=== PATIENT | male | born 1965 | race Caucasian/White ===

== ENCOUNTER 2019-11-07 04:54 | Inpatient (IN) | payer OTHER ==
[2019-11-07] MEDS ORDERED: NITROGLYCERIN OINT 1 INCH/GM PACKET TOPICAL STA (05:24)
--- NOTE | 2019-11-07 05:28 | ED ---
SOB HPI - General Chief Complaint: Shortness of Breath Stated Complaint: SOB Time Seen by Provider: 11/07/19 05:09 Source: patient Mode of arrival: ambulatory Limitations: no limitations - History of Present Illness Initial Comments: This patient is a 54-year-old man who presents with the complaint of dyspnea going on for approximately 3 months. The patient's does not have a primary physician. He states that he was previously told that he has hypertension but had not been able to afford his medications has not been on these for up to 2 years. Patient in describing the shortness of breath it sounds like it is mainly exertional. He has not had chest pain, cough or sputum, fever or chills. He has not noted leg pain or swelling. No change in bowel movements or urination. MD Complaint: shortness of breath Onset/Timin -: month(s) Severity scale (1-10): 0 Consistency: constant Improves With: nothing Worsens With: exertion Associated Symptoms: denies other symptoms Treatments Prior to Arrival: none - Related Data Home Oxygen Therapy: No Allergies Allergy/AdvReac Type Severity Reaction Status Date / Time No Known Allergies Allergy Verified 11/07/19 05:00 Review of Systems ROS Statement: Those systems with pertinent positive or pertinent negative responses have been documented in the HPI. ROS Other: All systems not noted in ROS Statement are negative. Constitutional: Denies: fever, chills Respiratory: Reports: dyspnea. Denies: cough, wheezes, hemoptysis Cardiovascular: Reports: dyspnea on exertion. Denies: chest pain, palpitations, orthopnea, edema, syncope Gastrointestinal: Denies: abdominal pain, nausea, vomiting, diarrhea, melena, hematochezia Genitourinary: Denies: dysuria, hematuria Musculoskeletal: Denies: back pain Skin: Denies: rash Neurological: Denies: headache Past Medical History Past Medical History: No Reported History History of Any Multi-Drug Resistant Organisms: None Reported Past Surgical History: No Surgical Hx Reported Past Psychological History: No Psychological Hx Reported Smoking Status: Former smoker Past Alcohol Use History: Daily Past Drug Use History: None Reported General Exam Limitations: no limitations General appearance: alert, in no apparent distress Head exam: Present: atraumatic, normocephalic Eye exam: Present: normal appearance. Absent: scleral icterus, conjunctival injection ENT exam: Present: normal oropharynx Neck exam: Present: normal inspection Respiratory exam: Present: normal lung sounds bilaterally. Absent: respiratory distress, wheezes, rales, rhonchi, stridor, accessory muscle use, decreased breath sounds, prolonged expiratory Cardiovascular Exam: Present: regular rate, normal rhythm, normal heart sounds. Absent: systolic murmur, diastolic murmur, rubs, gallop GI/Abdominal exam: Present: soft. Absent: distended, tenderness, guarding, rebound, rigid, mass Extremities exam: Present: normal inspection, normal capillary refill. Absent: pedal edema, calf tenderness Back exam: Present: normal inspection. Absent: CVA tenderness (R), CVA tenderness (L) Neurological exam: Present: alert Skin exam: Present: warm, dry, intact, normal color. Absent: rash Course Vital Signs 11/07/19 11/07/19 11/07/19 04:57 05:30 06:00 Temperature 98.4 F Pulse Rate 88 79 78 Respiratory 20 21 20 Rate Blood Pressure 192/113 174/103 156/100 O2 Sat by Pulse 98 98 97 Oximetry 11/07/19 11/07/19 06:10 06:20 Temperature Pulse Rate 77 77 Respiratory 20 19 Rate Blood Pressure 157/96 154/87 O2 Sat by Pulse 97 96 Oximetry Medical Decision Making - Lab Data Result diagrams: 11/07/19 05:46 11/07/19 05:46 Lab Results 11/07/19 11/07/19 11/07/19 Range/Units 05:46 05:46 05:46 WBC 8.4 (3.8-10.6) k/uL RBC 5.36 (4.30-5.90) m/uL Hgb 15.8 (13.0-17.5) gm/dL Hct 46.9 (39.0-53.0) % MCV 87.5 (80.0-100.0) fL MCH 29.5 (25.0-35.0) pg MCHC 33.7 (31.0-37.0) g/dL RDW 13.1 (11.5-15.5) % Plt Count 320 (150-450) k/uL Neutrophils % 66 % Lymphocytes % 21 % Monocytes % 7 % Eosinophils % 2 % Basophils % 1 % Neutrophils # 5.6 (1.3-7.7) k/uL Lymphocytes # 1.8 (1.0-4.8) k/uL Monocytes # 0.6 (0-1.0) k/uL Eosinophils # 0.2 (0-0.7) k/uL Basophils # 0.1 (0-0.2) k/uL PT (9.0-12.0) sec INR (<1.2) APTT (22.0-30.0) sec Sodium 139 (137-145) mmol/L Potassium 4.6 (3.5-5.1) mmol/L Chloride 106 (98-107) mmol/L Carbon Dioxide 22 (22-30) mmol/L Anion Gap 11 mmol/L BUN 13 (9-20) mg/dL Creatinine 0.74 (0.66-1.25) mg/dL Est GFR (CKD-EPI)AfAm >90 (>60 ml/min/1.73 sqM) Est GFR (CKD-EPI)NonAf >90 (>60 ml/min/1.73 sqM) Glucose 130 H (74-99) mg/dL Calcium 9.4 (8.4-10.2) mg/dL Total Bilirubin 0.9 (0.2-1.3) mg/dL AST 27 (17-59) U/L ALT 26 (4-49) U/L Alkaline Phosphatase 46 (38-126) U/L Troponin I (0.000-0.034) ng/mL NT-Pro-B Natriuret Pep 343 pg/mL Total Protein 8.1 (6.3-8.2) g/dL Albumin 4.5 (3.5-5.0) g/dL 11/07/19 11/07/19 Range/Units 05:46 05:46 WBC (3.8-10.6) k/uL RBC (4.30-5.90) m/uL Hgb (13.0-17.5) gm/dL Hct (39.0-53.0) % MCV (80.0-100.0) fL MCH (25.0-35.0) pg MCHC (31.0-37.0) g/dL RDW (11.5-15.5) % Plt Count (150-450) k/uL Neutrophils % % Lymphocytes % % Monocytes % % Eosinophils % % Basophils % % Neutrophils # (1.3-7.7) k/uL Lymphocytes # (1.0-4.8) k/uL Monocytes # (0-1.0) k/uL Eosinophils # (0-0.7) k/uL Basophils # (0-0.2) k/uL PT 10.3 (9.0-12.0) sec INR 1.0 (<1.2) APTT 24.6 (22.0-30.0) sec Sodium (137-145) mmol/L Potassium (3.5-5.1) mmol/L Chloride (98-107) mmol/L Carbon Dioxide (22-30) mmol/L Anion Gap mmol/L BUN (9-20) mg/dL Creatinine (0.66-1.25) mg/dL Est GFR (CKD-EPI)AfAm (>60 ml/min/1.73 sqM) Est GFR (CKD-EPI)NonAf (>60 ml/min/1.73 sqM) Glucose (74-99) mg/dL Calcium (8.4-10.2) mg/dL Total Bilirubin (0.2-1.3) mg/dL AST (17-59) U/L ALT (4-49) U/L Alkaline Phosphatase (38-126) U/L Troponin I 0.019 (0.000-0.034) ng/mL NT-Pro-B Natriuret Pep pg/mL Total Protein (6.3-8.2) g/dL Albumin (3.5-5.0) g/dL - EKG Data -: EKG Interpreted by Me EKG shows normal: sinus rhythm, axis (Normal), intervals (Normal), QRS complexes (Q waves in the inferior leads, suggestive of possible old inferior infarct.), ST-T waves (Normal) Rate: normal (Rate 83 bpm) Interpretation: LVH Disposition Clinical Impression: CHF (congestive heart failure), Hypertension Disposition: ADMITTED IP TO THIS HOSP Condition: Good Is patient prescribed a controlled substance at d/c from ED?: No Referrals: None,Stated [Primary Care Provider] - 1-2 days
[2019-11-07 05:58] LABS: Basophils # (A) 0.1 k/uL (0-0.2); Basophils % (A) 1 %; Eosinophils # (A) 0.2 k/uL (0-0.7); Eosinophils % (A) 2 %; HCT 46.9 % (39.0-53.0); HGB 15.8 gm/dL (13.0-17.5); Lymphocytes # (A) 1.8 k/uL (1.0-4.8); Lymphocytes % (A) 21 %; MCH 29.5 pg (25.0-35.0); MCHC 33.7 g/dL (31.0-37.0); MCV 87.5 fL (80.0-100.0); Mean Platelet Volume 7.5; Monocytes # (A) 0.6 k/uL (0-1.0); Monocytes % (A) 7 %; Neutrophils # (A) 5.6 k/uL (1.3-7.7); Neutrophils % (A) 66 %; Platelet Count 320 k/uL (150-450); RBC 5.36 m/uL (4.30-5.90); RDW 13.1 % (11.5-15.5); WBC 8.4 k/uL (3.8-10.6)
[2019-11-07 06:06] LABS: Potassium 4.6 mmol/L (3.5-5.1)
[2019-11-07 06:07] LABS: ALT 26 U/L (4-49); AST 27 U/L (17-59); African American GFR (CKD) >90 (>60 ml/min/1.73 sqM); Albumin 4.5 g/dL (3.5-5.0); Alkaline Phosphatase 46 U/L (38-126); Anion Gap 11 mmol/L; Blood Urea Nitrogen 13 mg/dL (9-20); Calcium 9.4 mg/dL (8.4-10.2); Carbon Dioxide 22 mmol/L (22-30); Chloride 106 mmol/L (98-107); Glucose 130 mg/dL (74-99); Non-African American GFR(CKD) >90 (>60 ml/min/1.73 sqM); Sodium 139 mmol/L (137-145); Total Bilirubin 0.9 mg/dL (0.2-1.3); Total Protein 8.1 g/dL (6.3-8.2)
[2019-11-07 06:08] LABS: Partial Thromboplastin Time 24.6 sec (22.0-30.0); Prothrombin Time 10.3 sec (9.0-12.0)
--- NOTE | 2019-11-07 06:10 | XR ---
EXAMINATION TYPE: XR chest 2V DATE OF EXAM: 11/07/2019 COMPARISON: NONE HISTORY: Difficulty in breathing. TECHNIQUE: Frontal and lateral views of the chest are obtained. FINDINGS: Low lung volumes and cardiomegaly. Overlying EKG leads. Perhaps mild central vascular conge stion. There is no suspicious focal air space opacity, pleural effusion, or pneumothorax seen. The cardiac silhouette size is within normal limits. The osseous structures are intact. IMPRESSION: Low lung volumes and cardiomegaly with perhaps mild central vascular congestion. Correla te for CHF exacerbation.
[2019-11-07] MEDS ORDERED: FUROSEMIDE 10 MG/ML 4 ML VIAL IV STA (06:24)
[2019-11-07] MEDS: FUROSEMIDE 10 MG/ML 4 ML VIAL IV SCH ×2 (06:39→18:21)
--- NOTE | 2019-11-07 08:50 | P.CRDCN ---
History of Present Illness Consult date: 11/07/19 Requesting physician: Twin Hensley Consult reason: hypertension, shortness of breath Chief complaint: Shortness of breath History of present illness: This is a 54-year-old gentleman with prior history of hypertension, he stopped taking his medication about 2 years ago because of a job change, he went through a period of time with no insurance. He is nondiabetic, no hyperlipidemia, smoking more than a year ago, he does drink alcohol daily, one or 2 drinks per day. According to the patient, for the past 2 months the patient has been progressively more short of breath. He states he notices his shortness of breath when he exerts himself even minimally, he also gets short of breath when he bends forward. When he sits down and rests he states that the breathing is not nearly as bad. He went to [facility] prior to coming to the hospital because he thought his blood pressure may be running high, he states that it was very high and he subsequently came to the hospital for further evaluation and treatment. His chest x-ray on presentation here revealed low lung volumes and cardiomegaly with mild central vascular congestion. His EKG on presentation here shows normal sinus rhythm with LVH strain pattern, and inferior Q waves. Blood pressure on arrival here 192/113, heart rate in the 80s, 98% on room air. Let pressure this morning 140/80 with a heart rate in the 80s, 97% on room air. White blood cell count 8.4, hemoglobin 15.8, platelet count 320. Sodium 139, potassium 4.6, BUN 13, creatinine 0.7. Glucose on arrival 130. Troponin 0.019, BNP 343. Patient was initiated on IV Lasix in the emergency room, he has diuresed well since then. At the time of my examination this morning, patient states that he is feeling much better, he has not yet ambulated to see if the shortness of breath with ambulation has improved. Past Medical History Past Medical History: No Reported History History of Any Multi-Drug Resistant Organisms: None Reported Past Surgical History: No Surgical Hx Reported Past Psychological History: No Psychological Hx Reported Smoking Status: Former smoker Past Alcohol Use History: Daily Past Drug Use History: None Reported Medications and Allergies Home Medications Medication Instructions Recorded Confirmed Type Naproxen 500 mg PO DAILY 11/07/19 11/07/19 History [place]-3 Fatty Acids/Fish Oil [Fish 1 cap PO DAILY 11/07/19 11/07/19 History Oil 1,000 mg Softgel] Vitamin B Complex 1 cap PO DAILY 11/07/19 11/07/19 History Allergies Allergy/AdvReac Type Severity Reaction Status Date / Time No Known Allergies Allergy Verified 11/07/19 07:03 Physical Exam Vitals: Vital Signs Temp Pulse Resp BP Pulse Ox 11/07/19 07:56 20 11/07/19 07:50 82 22 144/84 97 11/07/19 07:40 79 13 128/71 96 11/07/19 07:30 79 15 128/71 97 11/07/19 07:20 75 18 144/84 96 11/07/19 07:10 75 18 179/97 96 11/07/19 07:00 80 18 143/92 96 11/07/19 06:50 78 16 143/92 99 11/07/19 06:40 72 16 159/95 97 11/07/19 06:30 78 16 156/98 98 11/07/19 06:20 77 19 154/87 96 11/07/19 06:10 77 20 157/96 97 11/07/19 06:00 78 20 156/100 97 11/07/19 05:30 79 21 174/103 98 11/07/19 04:57 98.4 F 88 20 192/113 98 Intake and Output 11/06/19 11/07/19 11/07/19 22:59 06:59 14:59 Other: Weight 127.006 kg PHYSICAL EXAMINATION: GENERAL: 54-year-old gentleman in no acute distress at the time of my examination HEENT: Head is atraumatic, normocephalic. Pupils equal, round. Sclera anicteric. Conjunctiva are clear. Mucous membranes of the mouth are moist. Neck is supple. There is no elevated jugular venous pressure. No carotid bruit is heard. HEART EXAMINATION: Heart S1, S2 normal. No murmur or gallop heard. CHEST EXAMINATION: Lungs are clear with diminished air entry to bilateral bases ABDOMEN: Soft, obese, nontender. Bowel sounds are heard. No organomegaly noted. EXTREMITIES: 2+ peripheral pulses with trace evidence of peripheral edema and no calf tenderness noted. Patient does have a rash noted on his bilateral lower extremities, he says that this is been present for about 2 months NEUROLOGIC patient is awake, alert and oriented 3. . Results 11/07/19 05:46 11/07/19 05:46 Cardiac Enzymes 11/07/19 11/07/19 Range/Units 05:46 05:46 AST 27 (17-59) U/L Troponin I 0.019 (0.000-0.034) ng/mL Coagulation 11/07/19 Range/Units 05:46 PT 10.3 (9.0-12.0) sec APTT 24.6 (22.0-30.0) sec Lipids 11/07/19 Range/Units 05:46 Triglycerides 75 (<150) mg/dL Cholesterol 185 (<200) mg/dL HDL Cholesterol 34 L (40-60) mg/dL CBC 11/07/19 Range/Units 05:46 WBC 8.4 (3.8-10.6) k/uL RBC 5.36 (4.30-5.90) m/uL Hgb 15.8 (13.0-17.5) gm/dL Hct 46.9 (39.0-53.0) % Plt Count 320 (150-450) k/uL Comprehensive Metabolic Panel 11/07/19 Range/Units 05:46 Sodium 139 (137-145) mmol/L Potassium 4.6 (3.5-5.1) mmol/L Chloride 106 (98-107) mmol/L Carbon Dioxide 22 (22-30) mmol/L BUN 13 (9-20) mg/dL Creatinine 0.74 (0.66-1.25) mg/dL Glucose 130 H (74-99) mg/dL Calcium 9.4 (8.4-10.2) mg/dL AST 27 (17-59) U/L ALT 26 (4-49) U/L Alkaline Phosphatase 46 (38-126) U/L Total Protein 8.1 (6.3-8.2) g/dL Albumin 4.5 (3.5-5.0) g/dL Current Medications Generic Name Dose Route Start Last Admin Trade Name Freq PRN Reason Stop Dose Admin Aspirin 325 mg 11/08/19 06:30 Aspirin PO DAILY ARELY Furosemide 40 mg 11/07/19 06:30 11/07/19 06:39 Lasix IV Not Given Q12H ARELY Lisinopril 10 mg 11/07/19 09:00 Zestril PO DAILY ARELY Nitroglycerin 1 inch 11/07/19 09:00 Nitro-Bid Oint TOPICAL QID ARELY Intake and Output 11/06/19 11/07/19 11/07/19 22:59 06:59 14:59 Other: Weight 127.006 kg 11/07/19 05:46 11/07/19 05:46 EKG Interpretations (text) EKG shows normal sinus rhythm with LVH strain pattern and inferior Q waves Assessment and Plan Plan: Assessment and plan #1 hypertensive urgency #2 congestive heart failure, LV function unknown #3 history of hypertension, not on any medications at home #4 daily EtOH use #5 prior history of smoking #6 obesity Plan We will obtain an echocardiogram with Doppler study, decrease aspirin 81 mg daily, continue IV Lasix, Cipro 10 mg has been added, we will also add metoprolol 25 mg one tablet by mouth twice a day, discontinue the Nitropaste. Check a fasting lipid profile as well as a hemoglobin A1c. Further recommendations to follow. DNP note has been reviewed, I agree with a documented findings and plan of care. Patient was seen and examined.
[2019-11-07] MEDS ORDERED: NITROGLYCERIN OINT 1 INCH/GM PACKET TOPICAL SCH (09:00)
[2019-11-07] MEDS: METOPROLOL TARTRATE 25 MG TAB PO SCH ×2 (09:38→20:04)
[2019-11-07] MEDS: LISINOPRIL 10 MG TAB PO SCH (09:38)
--- NOTE | 2019-11-07 10:07 | ECHOF ---
Referral Reason:chf MEASUREMENTS -------- HEIGHT: 170.2 cm WEIGHT: 127.0 kg BP: IVSd: 1.5 cm (0.6 - 1.1) LVIDd: 4.8 cm (3.9 - 5.3) LVPWd: 1.4 cm (0.6 - 1.1) IVSs: 1.5 cm LVIDs: 3.9 cm LVPWs: 1.4 cm LA Diam: 3.2 cm (2.7 - 3.8) Ao Diam: 3.7 cm (2.0 - 3.7) AV Cusp: 1.8 cm (1.5 - 2.6) MV EXCURSION: 14.577 mm (> 18.000) MV EF SLOPE: 57 mm/s (70 - 150) EPSS: 0.6 cm MV E Alexandre: 0.37 m/s MV DecT: 191 ms MV A Alexandre: 0.59 m/s MV E/A Ratio: 0.63 RAP: 5.00 mmHg RVSP: 15.61 mmHg FINDINGS -------- Sinus rhythm. Morbid Obesity This was a techncally difficult study with suboptimal views, , Lumason utilized for enhancement of images. The left ventricular size is normal. There is moderate concentric left ventricular hypertrophy. T here is mild global hypokinesis of LV . Overall left ventricular systolic function is mildly impair ed with, an EF between 45 - 50 %. The right ventricle is normal in size. The left atrial size is normal. The right atrial size is normal. 5.0mg OF Lumason UTLIZED: 2 OR MORE WALL SEGMENTS NOT VISUALIZED. The aortic valve is trileaflet, and appears structurally normal. No aortic stenosis or regurgitation. The mitral valve is normal. Mild mitral regurgitation is present. Mild tricuspid regurgitation present. Right ventricular systolic pressure is normal at < 35 mmHg. The right ventricular systolic pressure, as measured by Doppler, is 15.61mmHg. The pulmonic valve was not well visualized. There is no pulmonic regurgitation present. The aortic root size is normal. There is no pericardial effusion. CONCLUSIONS -------- 1. Sinus rhythm. 2. Morbid Obesity 3. This was a techncally difficult study with suboptimal views, , Lumason utilized for enhancement of images. 4. The left ventricular size is normal. 5. There is moderate concentric left ventricular hypertrophy. 6. There is mild global hypokinesis of LV . 7. Overall left ventricular systolic function is mildly impaired with, an EF between 45 - 50 %. 8. The left atrial size is normal. 9. 5.0mg OF Lumason UTLIZED: 2 OR MORE WALL SEGMENTS NOT VISUALIZED. 10. The aortic valve is trileaflet, and appears structurally normal. No aortic stenosis or regurgitat ion. 11. Mild mitral regurgitation is present. 12. Mild tricuspid regurgitation present. 13. Right ventricular systolic pressure is normal at < 35 mmHg. 14. The pulmonic valve was not well visualized. 15. There is no pericardial effusion. STOCK CHASER: Madison Rivera RDCS
--- NOTE | 2019-11-07 10:27 | HP ---
HISTORY AND PHYSICAL A 54-year-old white male presents with increasing dyspnea in the past 3 months. He has a history of hypertension and he has been off his medications for the past 1-1/2 years. He has progressive shortness of breath and 20 pounds weight gain with mainly exertional and 20 pounds weight gain over the past 2-3 months. He denies any cough, sputum production, fever, chills, it is worse when bends over, worse with exertion, improves with nothing and denies any of the symptoms but weight gain. ALLERGIES: No known drug allergies. 14 POINT REVIEW OF SYSTEMS: Negative except for as mentioned in HPI. PAST MEDICAL HISTORY: Hypertension. 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 Daily alcohol. PHYSICAL EXAM: BMI is over 40. He appears in no acute distress. LUNGS: Rales at the bases. Decreased breath sounds. HEART: S1, S2 without any murmurs, rubs, gallops. GI: Distended, obesity. HEMATOLOGY: 2+ pedal edema, bilaterally. PSYCH: Flat mood and affect. NEUROLOGIC: Cranial nerves intact. SKIN: No rash, excoriation, bruising. Blood pressure is 192-156 over low 100s, temp 98.4, pulse 78 [birth year]/13/1980, respiratory 18 22. LABS: Reviewed. Hemoglobin is 15.8, hematocrit 46, white count 8.4, BUN is 13, creatinine is 0.74, glucose 130. Liver enzymes are normal. ASSESSMENT: 1. Congestive heart failure, acute diastolic congestive heart failure, hypertension acceleration. 2. Obesity, rule out obstructive sleep apnea. IV Lasix, blood pressure control, echo. Please see further orders, await Cardiology recommendations. MMODL / IJN: [id number] /
[2019-11-07 12:42] VITALS: RESP 18
[2019-11-07 13:46] VITALS: BMI 44.6
[2019-11-07 19:10] LABS: Hemoglobin A1C 6.3 % (4.0-6.0)
[2019-11-08] MEDS: FUROSEMIDE 10 MG/ML 4 ML VIAL IV SCH (06:20)
[2019-11-08] MEDS ORDERED: ASPIRIN 325 MG TAB PO SCH (06:30)
[2019-11-08] MEDS: LISINOPRIL 10 MG TAB PO SCH (08:01)
[2019-11-08] MEDS: METOPROLOL TARTRATE 25 MG TAB PO SCH (08:01)
[2019-11-08 08:08] VITALS: TEMP 97.4
[2019-11-08] MEDS ORDERED: ASPIRIN 81 MG PO SCH (09:00)
--- NOTE | 2019-11-08 09:44 | P.DS ---
Providers Date of admission: 11/07/19 06:28 Expected date of discharge: 11/08/19 Attending physician: Twin Hensley Consults: 11/07/19 06:28 Consult Physician Routine Consulting Provider: Austin Sosa Consult Reason/Comments: New onset CHF. Do you want consulting provider notified?: Yes Primary care physician: Stated None [facility] Hospital Course: Final Diagnoses: Acute CHF exacerbation, systolic dysfunction, EF 45-50% Accelerated hypertension Obesity, morbid, BMI 44.6 Possible obstructive sleep apnea, will need outpatient sleep study. Former nicotine dependence This is a 54-year-old gentleman admitted with progressive dyspnea accompanied by weight gain, hypertension and multiple other medical issues. Echo suboptimal ,reported EF 45-50%, moderate concentric left ventricular hypertrophy, mild global hypokinesis of LV. Evaluated by cardiology. Diuresed well on Lasix IV push. Significant clinical improvement. Patient will be discharged home pending clearance, diuretic recommendations from cardiology, in a stable condition with guarded prognosis. PHYSICAL EXAM: GENERAL: Alert and oriented 3, no acute distress CARDIOVASCULAR: S1, S2 regular. No murmur RESPIRATION: Breath sounds diminished in the bases. No rhonchi or crackles. No bronchial breathing. ABDOMEN: Soft, nontender . No guarding. no masses palpable.Bowel sounds heard. NERVOUS SYSTEM: No focal deficits. The impression and plan of care has been dictated as directed. : I performed a history and examination of this patient, discussed the same with the dictator. I agree with the dictator's note ,documented as a scribe. Any additional findings or plans will be noted. Patient Condition at Discharge: Stable Plan - Discharge Summary Discharge Rx Participant: Yes New Discharge Prescriptions: New Aspirin 81 mg PO DAILY chew Metoprolol Tartrate [Lopressor] 25 mg PO BID #60 tab Lisinopril [Zestril] 10 mg PO DAILY #30 tab Continue [place]-3 Fatty Acids/Fish Oil [Fish Oil 1,000 mg Softgel] 1 cap PO DAILY Vitamin B Complex 1 cap PO DAILY Discontinued Naproxen 500 mg PO DAILY Discharge Medication List [place]-3 Fatty Acids/Fish Oil [Fish Oil 1,000 mg Softgel] 1 cap PO DAILY 11/07/19 [History] Vitamin B Complex 1 cap PO DAILY 11/07/19 [History] Aspirin 81 mg PO DAILY chew 01/03/20 [Rx] Lisinopril [Zestril] 10 mg PO DAILY #30 tab 11/08/19 [Rx] Metoprolol Tartrate [Lopressor] 25 mg PO BID #60 tab 11/08/19 [Rx] Follow up Appointment(s)/Referral(s): Ana Wheeler MD [STAFF PHYSICIAN] - 11/21/19 3:30 pm ([employer]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 Please arrive a few minutes early to fill out new patient paperwork.) Twin Hensley MD [STAFF PHYSICIAN] - 3 Days Ambulatory/Diagnostic Orders: Complete Blood Count w/diff [LAB.AMB] Time Frame: 3 Days, Location: None Selected Patient Instructions/Handouts: Heart Failure (DC), Heart Healthy Diet (DC), At- Risk Alcohol Use (DC) Activity/Diet/Wound Care/Special Instructions: Lasix as per cardiology CHF 1. Weigh yourself every morning after you urinate. If you gain 2-3 pounds overnight or 5 pounds in one week, call your primary physician for guidance on your medications. Keep a log of your weights. 2. Avoid salt, or foods with hidden salt. Extra salt makes your heart work harder and traps the fluid in your body for longer. 3. Take all of your medications as directed, especially your water pills. NEVER skip a dose. 4. Elevate your legs when you are not up moving around to help with circulation and prevent swelling. 5. Call your physician if you notice any extra swelling in your legs, ankles, feet or abdomen, if you have a new dry cough, if your shortness of breath worsens with activity or at rest, or if you feel more fatigued. Diet: heart healthy, low cholesterol,RAHEL
[2019-11-08 11:02] VITALS: BP 129/82; PULSE 67
[2019-11-08] MEDS ORDERED: Potassium Replacement Protocol 1 EACH MISC MISCELLANE PRN (11:56)
--- NOTE | 2019-11-08 12:18 | P.PN ---
Subjective Progress Note Date: 11/08/19 This is a 54-year-old gentleman with prior history of hypertension, he stopped taking his medication about 2 years ago because of a job change, he went through a period of time with no insurance. He is nondiabetic, no hyperlipidemia, smoking more than a year ago, he does drink alcohol daily, one or 2 drinks per day. According to the patient, for the past 2 months the patient has been progressively more short of breath. He states he notices his shortness of breath when he exerts himself even minimally, he also gets short of breath when he bends forward. When he sits down and rests he states that the breathing is not nearly as bad. He went to [facility] prior to coming to the hospital because he thought his blood pressure may be running high, he states that it was very high and he subsequently came to the hospital for further evaluation and treatment. His chest x-ray on presentation here revealed low lung volumes and cardiomegaly with mild central vascular congestion. His EKG on presentation here shows normal sinus rhythm with LVH strain pattern, and inferior Q waves. Blood pressure on arrival here 192/113, heart rate in the 80s, 98% on room air. Blood pressure this morning 140/80 with a heart rate in the 80s, 97% on room air. White blood cell count 8.4, hemoglobin 15.8, platelet count 320. Sodium 139, potassium 4.6, BUN 13, creatinine 0.7. Glucose on arrival 130. Troponin 0.019, BNP 343. Patient was initiated on IV Lasix in the emergency room, he has diuresed well since then. At the time of my examination this morning, patient states that he is feeling much better, he has not yet ambulated to see if the shortness of breath with ambulation has improved. 11/08/2019 Patient seen and examined this morning, feeling significantly better overall. Blood pressure is stable, 120/80 with a heart rate in the 60s, 96% on room air.according to the patient, he diuresed well through the night last night.echocardiogram with Doppler study revealed an ejection fraction of 45-50 Objective - Vital Signs Vital signs: Vital Signs Temp 97.4 F L 11/08/19 08:03 Pulse 67 11/08/19 11:01 Resp 18 11/08/19 11:01 BP 129/82 11/08/19 11:01 Pulse Ox 96 11/08/19 11:01 Intake & Output 11/07/19 11/08/19 11/08/19 18:59 06:59 18:59 Intake Total 740 Output Total 800 Balance 740 -800 Weight 129.2 kg 129.2 kg Intake: Oral 740 Output: Urine 800 Other: # Voids 1 1 - Exam PHYSICAL EXAMINATION: GENERAL: 54-year-old gentleman in no acute distress at the time of my examination HEENT: Head is atraumatic, normocephalic. Pupils equal, round. Sclera anicteric. Conjunctiva are clear. Mucous membranes of the mouth are moist. Neck is supple. There is no elevated jugular venous pressure. No carotid bruit is heard. HEART EXAMINATION: Heart S1, S2 normal. No murmur or gallop heard. CHEST EXAMINATION: Lungs are clear to auscultation and percussion ABDOMEN: Soft, obese, nontender. Bowel sounds are heard. No organomegaly noted. EXTREMITIES: 2+ peripheral pulses with no evidence of peripheral edema and no calf tenderness noted. Patient does have a rash noted on his bilateral lower extremities, he says that this is been present for about 2 months NEUROLOGIC patient is awake, alert and oriented 3. - Labs CBC & Chem 7: 11/07/19 05:46 11/07/19 05:46 Labs: Abnormal Lab Results - Last 24 Hours (Table) 11/07/19 Range/Units 05:46 Hemoglobin A1c 6.3 H (4.0-6.0) % Assessment and Plan Plan: Assessment and plan #1 hypertensive urgency #2 congestive heart failure, LV function unknown #3 history of hypertension, not on any medications at home #4 daily EtOH use #5 prior history of smoking #6 obesity Plan We will obtain an echocardiogram with Doppler study, decrease aspirin 81 mg daily, continue IV Lasix, Cipro 10 mg has been added, we will also add metoprolol 25 mg one tablet by mouth twice a day, discontinue the Nitropaste. Check a fasting lipid profile as well as a hemoglobin A1c. Further recommendations to follow. DNP note has been reviewed, I agree with a documented findings and plan of care. Patient was seen and examined.
[2019-11-08 12:43] LABS: African American GFR (CKD) >90 (>60 ml/min/1.73 sqM); Anion Gap 10 mmol/L; Blood Urea Nitrogen 24 mg/dL (9-20); Calcium 9.9 mg/dL (8.4-10.2); Carbon Dioxide 30 mmol/L (22-30); Chloride 99 mmol/L (98-107); Glucose 97 mg/dL (74-99); Non-African American GFR(CKD) 80 (>60 ml/min/1.73 sqM); Potassium 4.5 mmol/L (3.5-5.1); Sodium 139 mmol/L (137-145)
[2019-11-08] MEDS ORDERED: FUROSEMIDE 40 MG TAB PO SCH (16:00)
== END 2019-11-08 13:27 | disposition home or self-care (01) | DRG 291 ==
LOC: EC 04:54 → 3SCARD 06:28
PROVIDERS: ADMIT Family Medicine; ATTEND Family Medicine
DX: I11.0 Hypertensive heart disease with heart failure (principal); I50.21 Acute systolic (congestive) heart failure; Z68.41 Body mass index [BMI] 40.0-44.9, adult; I16.0 Hypertensive urgency; E66.01 Morbid (severe) obesity due to excess calories; G47.33 Obstructive sleep apnea (adult) (pediatric); Z87.891 Personal history of nicotine dependence
CPT/HCPCS: 36415; 71046; 80048; 80053; 80061; 83036; 83880; 84443; 84484; 85025; 85379; 85610; 85730; 93005; 93306; 96374; 99285

== ENCOUNTER → 2021-08-25 | Outpatient (CLI) | payer OTHER ==
--- NOTE | 2021-08-25 11:52 | NM ---
EXAMINATION TYPE: NM stress cardiolite complete DATE OF EXAM: 08/25/2021 COMPARISON: NONE HISTORY: Chest pain TECHNIQUE: After the intravenous administration of 9.4 mCi Tc 99m Sestamibi - Rest images obtained 5 5 minutes post injection. The patient exercised using a MANDY protocol and 1 minute prior to peak e xercise was injected with 25.9 mCi Tc 99m Sestamibi - Stress images obtained 50 minutes post injectio n. FINDINGS: Targeted heart rate was achieved during performance of the study. Review of stress and rest SPECT heena ges demonstrates area of fixed defect involving the apex and inferior wall with stress-induced revers ible changes seen involving the anterior and inferior apical portion of the myocardium.. Small area of reduced uptake and stress images involving the inferior septum also noted. Gated analysis shows an estimated left ventricular ejection fraction of 44 %. Report called to referring clinician 1 11:49 AM IMPRESSION: 1. Findings are compatible with areas of stress-induced reversible ischemia involving the apical, api karolyn anterior and apical inferior wall as well as a small area involving the inferior lateral myocardi um. 2. Estimated ejection fraction of 44%.
--- NOTE | 2021-08-25 12:12 | P.STRESS ---
- Stress Test Note Stress Test Results/Findings: Exam Performed: NM stress lexiscan cardiolite Exam Date: 08/25/21 Reason for Exam: ABNORMAL EKG Height: 5 ft 7 in Weight: 129.5 kg Protocol: LEXISCAN Stage: NA Duration of Exercise: 5 MINUTES Resting Heart Rate: 70 Resting Blood Pressure: 148/88 Maximum Achieved Heart Rate: 100 Maximum Achieved Blood Pressure: 149/87 85% PMHR: 139 100% PMHR: 163 METS: NA Technologist Comment: Stress Test Results/Findings: Baseline heart rate 70 beats only, Baseline blood pressure 148/88. His mercury Baseline 12-lead EKG shows sinus rhythm with Q waves in the inferior leads with [address] elevation Patient received Lexiscan infusion per protocol No significant change in heart rate and blood pressure line no new ECG abnormalities Nuclear portion will be reported separately
== END | disposition home or self-care (01) ==
LOC: RADNMMAIN 08:00
PROVIDERS: ATTEND Family Medicine
DX: R07.9 Chest pain, unspecified (principal)
CPT/HCPCS: 93017; 93306; 78452; A9500; Q9950